=== PATIENT | female | born 1980 | race Caucasian/White ===

== ENCOUNTER 2025-06-09 21:45 | Emergency (ER) | payer OTHER, SELFPAY ==
[2025-06-09 21:53] VITALS: BP 99/54; PULSE 73; RESP 18; TEMP 36.8; O2SAT 99; BMI 22.1
== END 2025-06-10 00:05 | disposition left against medical advice (07) ==
PROVIDERS: Emergency Provider Emergency Medicine; PCP Registered Nurse
DX: M79.671 Pain in right foot (principal); Z53.21 Procedure and treatment not carried out due to patient leaving prior to being seen by health care provider
CPT/HCPCS: 99281